=== PATIENT | female | born 1950 | race African-American/Black ===

== ENCOUNTER 2016-10-23 07:17 | Day surgery (SDC) | payer MEDICARE ==
[~2016-10-23] VITALS: Ht 168.9 cm; Wt 101.2 kg
--- NOTE | 2016-10-23 06:37 | HP ---
ADMIT DATE: 10/23/2016 HISTORY OF PRESENT ILLNESS: The patient originally came to me because of abdominal pain apparently. She apparently had a convoluted history, which showed her to have significant upper vertebral thoracic spine surgery for a very difficult and unusual problem. She has gotten over this and has been cleared for surgery. This was done many months ago. She has done well since then, but while she was in the hospital at that time, developed abdominal discomfort and was found to have gallstones. That was on CT and recently, a sonogram has also showed that. The laboratory data showed no other abnormalities. Since then, she has been relatively well, but does have these bouts of fatty food intolerance, gas, bloating and right upper quadrant pain and also has some right lower quadrant pain. She has normal bowel movements and no other ____ symptoms and is not nauseated or vomiting and has not lost weight. PAST MEDICAL HISTORY: Significant in that she had this spine surgery about 6-8 months ago and apparently was significant for a very long incision in the upper thoracic spine. She has had a hysterectomy and had a Pfannenstiel incision for that and has apparently had cervical spine surgery done to the neck. 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 She has been taking steroids up until about 6 weeks ago. ALLERGIES: SHE IS ALLERGIC TO TRAMADOL AND LEVAQUIN, BUT HAS NO OTHER ALLERGIES. MEDICATIONS: She does take medicine for hypertension and has been taking some thyroid medicine also. SOCIAL HISTORY: Shows that she drinks only socially, but does not smoke or use illicit drugs. Has no children. FAMILY HISTORY: Otherwise, negative except for mother who had a similar unusual thoracic spine surgery and apparently is paralyzed from that back disorder. REVIEW OF SYSTEMS: Negative except for that that has been stated. PHYSICAL EXAMINATION: GENERAL: Shows her to be alert, well-oriented female in no acute distress. HEENT: Grossly normal. CHEST: Clear bilaterally to auscultation. HEART: Had no murmurs, heaves, friction rubs or thrills and had a rate of about 65 beats per minute and it was regular. BREASTS: Not examined. PELVIC: Not done. ABDOMEN: Showed tenderness mostly in the right upper quadrant and epigastrium, but no guarding or rebound and she also had some tenderness in the right lower quadrant. There was likewise no guarding, rebound, no organomegaly or masses that were noted. She was not sweating and had only the Pfannenstiel incision that was noted. Otherwise, the examination was negative. DIAGNOSES: 1. Cholelithiasis. 2. Hypertension. 3. Probable hypothyroidism. 4. Cervical and thoracic spine disorders including surgery for the same. AJAY ERAZO MD DR: ARLEEN/nts JOB#: [id number] / [id number]
[~2016-10-23 07:17] MED LIST: ASPI-482 PO; CEFAZOLIN 2GM PREMIX 50 ML IV PRN; FENTANYL PF 100 MCG/2 ML VIAL. IV PRN; IBUP200T58 PO; IV RINGERS,LACTATED 1000ML 1,000 ML IV SCH; LEVO150T5 PO; LIDOCAINE 1% 1 ML SYRINGE. ID PRN; ONDANSETRON PF 4 MG/2 ML VIAL. IV PRN; PROCHLORPERAZINE 10 MG/2 ML VIAL. IV PRN; [UNRECOGNIZED DRUG - CODE]
[2016-10-23] MEDS ORDERED: IOHEXOL 300 MG/ML 50 ML VIAL. ONE (07:39)
[2016-10-23] MEDS ORDERED: BUPIVACAINE-EPI 0.25%-1:200000 50 ML VIAL. ONE (07:39)
[2016-10-23 08:38] LABS: BASO % 1 % (0-3); EOS % 2 % (0-3); HEMATOCRIT 37.3 % (36.0-47.0); LYMPH # 2.7 x10^3/uL (1.0-4.8); LYMPH % 40 % (24-48); MEAN CORPUSCULAR HEMOGLOBIN 26 pg (25-35); MEAN CORPUSCULAR HGB CONC 32 g/dL (31-37); MEAN CORPUSCULAR VOLUME 82 fL (79-100); MONO % 12 % (0-9); NEUT % 46 % (31-73); PLATELET COUNT 193 x10^3/uL (140-400); RED BLOOD COUNT 4.57 x10^6/uL (3.50-5.40); RED CELL DISTRIBUTION WIDTH 16.1 % (11.5-14.5); WHITE BLOOD COUNT 6.8 x10^3/uL (4.0-11.0)
[2016-10-23 08:52] LABS: CREATININE 0.9 mg/dL (0.6-1.0); GFR 75.8; POTASSIUM 3.9 mmol/L (3.5-5.1)
[2016-10-23] MEDS ORDERED: FENTANYL PF 100 MCG/2 ML VIAL. ONE ×2 (08:52→10:35)
[2016-10-23] MEDS ORDERED: GLYCOPYRROLATE 1 MG/5 ML VIAL. ONE (08:53)
[2016-10-23] MEDS ORDERED: ROCURONIUM 50 MG/5 ML VIAL. ONE ×2 (08:53→10:35)
[2016-10-23] MEDS ORDERED: DESFLURANE > 120 MINUTES IH ONE (08:53)
[2016-10-23] MEDS ORDERED: MIDAZOLAM HCL/PF 2 MG/2 ML VIAL. ONE (08:53)
[2016-10-23] MEDS ORDERED: PROPOFOL 20 ML IV ONE (08:53)
[2016-10-23] MEDS ORDERED: LIDOCAINE 2% 100 MG/5 ML SYRINGE. ONE (08:53)
[2016-10-23] MEDS ORDERED: ONDANSETRON PF 4 MG/2 ML VIAL. ONE (08:54)
[2016-10-23] MEDS ORDERED: DEXAMETHASONE SOD PHOS 20 MG/5 ML VIAL. ONE (08:54)
[2016-10-23 08:58] LABS: ALBUMIN 3.6 g/dL (3.4-5.0); ALBUMIN/GLOBULIN RATIO 0.9 (1.0-1.7); TOTAL BILIRUBIN 0.5 mg/dL (0.2-1.0); TOTAL PROTEIN 7.6 g/dL (6.4-8.2)
[2016-10-23] MEDS ORDERED: IV RINGERS,LACTATED 1000ML 1,000 ML IV SCH (09:00)
[2016-10-23] MEDS ORDERED: HYDROCORTISONE SOD SUCC/PF 100 MG/2 ML VIAL. ONE (09:00)
--- NOTE | 2016-10-23 09:13 | PDOC ---
SURGICAL PROGRESS NOTE Subjective No change in dictated H&P. Vital Signs Vital Signs Date Time Temp Pulse Resp B/P Pulse Ox O2 Delivery O2 Flow Rate FiO2 10/23/16 08:31 97.5 63 100 97.5 10/23/16 08:29 20 183/80 Room Air Labs Laboratory Tests Test 10/23/16 08:30 White Blood Count 6.8x10^3/uL (4.0-11.0) Red Blood Count 4.57x10^6/uL (3.50-5.40) Hemoglobin 12.0g/dL (12.0-15.5) Hematocrit 37.3% (36.0-47.0) Mean Corpuscular Volume 82fL (79-100) Mean Corpuscular Hemoglobin 26pg (25-35) Mean Corpuscular Hemoglobin Concent 32g/dL (31-37) Red Cell Distribution Width 16.1% (11.5-14.5) Platelet Count 193x10^3/uL (140-400) Neutrophils (%) (Auto) 46% (31-73) Lymphocytes (%) (Auto) 40% (24-48) Monocytes (%) (Auto) 12% (0-9) Eosinophils (%) (Auto) 2% (0-3) Basophils (%) (Auto) 1% (0-3) Neutrophils # (Auto) 3.1x10^3uL (1.8-7.7) Lymphocytes # (Auto) 2.7x10^3/uL (1.0-4.8) Monocytes # (Auto) 0.8x10^3/uL (0.0-1.1) Eosinophils # (Auto) 0.1x10^3/uL (0.0-0.7) Basophils # (Auto) 0.0x10^3/uL (0.0-0.2) Prothrombin Time 13.0SEC (11.7-14.0) Prothromb Time International Ratio 1.0 (0.8-1.1) Activated Partial Thromboplast Time 30SEC (24-38) Sodium Level 144mmol/L (136-145) Potassium Level 3.9mmol/L (3.5-5.1) Chloride Level 107mmol/L (98-107) Carbon Dioxide Level 31mmol/L (21-32) Anion Gap 6 (6-14) Blood Urea Nitrogen 13mg/dL (7-20) Creatinine 0.9mg/dL (0.6-1.0) Estimated GFR (Cockcroft-Gault) 75.8 BUN/Creatinine Ratio 14 (6-20) Glucose Level 103mg/dL (70-99) Calcium Level 9.0mg/dL (8.5-10.1) Total Bilirubin 0.5mg/dL (0.2-1.0) Aspartate Amino Transf (AST/SGOT) 38U/L (15-37) Alanine Aminotransferase (ALT/SGPT) 37U/L (14-59) Alkaline Phosphatase 109U/L (46-116) Total Protein 7.6g/dL (6.4-8.2) Albumin 3.6g/dL (3.4-5.0) Albumin/Globulin Ratio 0.9 (1.0-1.7) Thyroid Stimulating Hormone (TSH) 3.976uIU/mL (0.358-3.74) Free Triiodothyronine (T3) pg/mL 2.08pg/mL (2.18-3.98) Laboratory Tests Test 10/23/16 08:30 White Blood Count 6.8x10^3/uL (4.0-11.0) Red Blood Count 4.57x10^6/uL (3.50-5.40) Hemoglobin 12.0g/dL (12.0-15.5) Hematocrit 37.3% (36.0-47.0) Mean Corpuscular Volume 82fL (79-100) Mean Corpuscular Hemoglobin 26pg (25-35) Mean Corpuscular Hemoglobin Concent 32g/dL (31-37) Red Cell Distribution Width 16.1% (11.5-14.5) Platelet Count 193x10^3/uL (140-400) Neutrophils (%) (Auto) 46% (31-73) Lymphocytes (%) (Auto) 40% (24-48) Monocytes (%) (Auto) 12% (0-9) Eosinophils (%) (Auto) 2% (0-3) Basophils (%) (Auto) 1% (0-3) Neutrophils # (Auto) 3.1x10^3uL (1.8-7.7) Lymphocytes # (Auto) 2.7x10^3/uL (1.0-4.8) Monocytes # (Auto) 0.8x10^3/uL (0.0-1.1) Eosinophils # (Auto) 0.1x10^3/uL (0.0-0.7) Basophils # (Auto) 0.0x10^3/uL (0.0-0.2) Prothrombin Time 13.0SEC (11.7-14.0) Prothromb Time International Ratio 1.0 (0.8-1.1) Activated Partial Thromboplast Time 30SEC (24-38) Sodium Level 144mmol/L (136-145) Potassium Level 3.9mmol/L (3.5-5.1) Chloride Level 107mmol/L (98-107) Carbon Dioxide Level 31mmol/L (21-32) Anion Gap 6 (6-14) Blood Urea Nitrogen 13mg/dL (7-20) Creatinine 0.9mg/dL (0.6-1.0) Estimated GFR (Cockcroft-Gault) 75.8 BUN/Creatinine Ratio 14 (6-20) Glucose Level 103mg/dL (70-99) Calcium Level 9.0mg/dL (8.5-10.1) Total Bilirubin 0.5mg/dL (0.2-1.0) Aspartate Amino Transf (AST/SGOT) 38U/L (15-37) Alanine Aminotransferase (ALT/SGPT) 37U/L (14-59) Alkaline Phosphatase 109U/L (46-116) Total Protein 7.6g/dL (6.4-8.2) Albumin 3.6g/dL (3.4-5.0) Albumin/Globulin Ratio 0.9 (1.0-1.7) Thyroid Stimulating Hormone (TSH) 3.976uIU/mL (0.358-3.74) Free Triiodothyronine (T3) pg/mL 2.08pg/mL (2.18-3.98) AJAY ERAZO MD Oct 23, 2016 09:13
--- NOTE | 2016-10-23 09:17 | PDOC ---
SURGICAL PROGRESS NOTE Subjective Op NOte: Surgeon.................................................Chang Pre op diag............................................Chronic cholecystitic and cholelithiasis Post op diag..........................................same Anesthesia............................................general Procedure.............................................Lap antonieta with grams Drains..................................................none Fluids...................................................see anesthesia Blood loss............................................20cc Condition.............................................satisfactory. Vital Signs Vital Signs Date Time Temp Pulse Resp B/P Pulse Ox O2 Delivery O2 Flow Rate FiO2 10/23/16 08:31 97.5 63 100 97.5 10/23/16 08:29 20 183/80 Room Air Labs Laboratory Tests Test 10/23/16 08:30 White Blood Count 6.8x10^3/uL (4.0-11.0) Red Blood Count 4.57x10^6/uL (3.50-5.40) Hemoglobin 12.0g/dL (12.0-15.5) Hematocrit 37.3% (36.0-47.0) Mean Corpuscular Volume 82fL (79-100) Mean Corpuscular Hemoglobin 26pg (25-35) Mean Corpuscular Hemoglobin Concent 32g/dL (31-37) Red Cell Distribution Width 16.1% (11.5-14.5) Platelet Count 193x10^3/uL (140-400) Neutrophils (%) (Auto) 46% (31-73) Lymphocytes (%) (Auto) 40% (24-48) Monocytes (%) (Auto) 12% (0-9) Eosinophils (%) (Auto) 2% (0-3) Basophils (%) (Auto) 1% (0-3) Neutrophils # (Auto) 3.1x10^3uL (1.8-7.7) Lymphocytes # (Auto) 2.7x10^3/uL (1.0-4.8) Monocytes # (Auto) 0.8x10^3/uL (0.0-1.1) Eosinophils # (Auto) 0.1x10^3/uL (0.0-0.7) Basophils # (Auto) 0.0x10^3/uL (0.0-0.2) Prothrombin Time 13.0SEC (11.7-14.0) Prothromb Time International Ratio 1.0 (0.8-1.1) Activated Partial Thromboplast Time 30SEC (24-38) Sodium Level 144mmol/L (136-145) Potassium Level 3.9mmol/L (3.5-5.1) Chloride Level 107mmol/L (98-107) Carbon Dioxide Level 31mmol/L (21-32) Anion Gap 6 (6-14) Blood Urea Nitrogen 13mg/dL (7-20) Creatinine 0.9mg/dL (0.6-1.0) Estimated GFR (Cockcroft-Gault) 75.8 BUN/Creatinine Ratio 14 (6-20) Glucose Level 103mg/dL (70-99) Calcium Level 9.0mg/dL (8.5-10.1) Total Bilirubin 0.5mg/dL (0.2-1.0) Aspartate Amino Transf (AST/SGOT) 38U/L (15-37) Alanine Aminotransferase (ALT/SGPT) 37U/L (14-59) Alkaline Phosphatase 109U/L (46-116) Total Protein 7.6g/dL (6.4-8.2) Albumin 3.6g/dL (3.4-5.0) Albumin/Globulin Ratio 0.9 (1.0-1.7) Thyroid Stimulating Hormone (TSH) 3.976uIU/mL (0.358-3.74) Free Triiodothyronine (T3) pg/mL 2.08pg/mL (2.18-3.98) Laboratory Tests Test 10/23/16 08:30 White Blood Count 6.8x10^3/uL (4.0-11.0) Red Blood Count 4.57x10^6/uL (3.50-5.40) Hemoglobin 12.0g/dL (12.0-15.5) Hematocrit 37.3% (36.0-47.0) Mean Corpuscular Volume 82fL (79-100) Mean Corpuscular Hemoglobin 26pg (25-35) Mean Corpuscular Hemoglobin Concent 32g/dL (31-37) Red Cell Distribution Width 16.1% (11.5-14.5) Platelet Count 193x10^3/uL (140-400) Neutrophils (%) (Auto) 46% (31-73) Lymphocytes (%) (Auto) 40% (24-48) Monocytes (%) (Auto) 12% (0-9) Eosinophils (%) (Auto) 2% (0-3) Basophils (%) (Auto) 1% (0-3) Neutrophils # (Auto) 3.1x10^3uL (1.8-7.7) Lymphocytes # (Auto) 2.7x10^3/uL (1.0-4.8) Monocytes # (Auto) 0.8x10^3/uL (0.0-1.1) Eosinophils # (Auto) 0.1x10^3/uL (0.0-0.7) Basophils # (Auto) 0.0x10^3/uL (0.0-0.2) Prothrombin Time 13.0SEC (11.7-14.0) Prothromb Time International Ratio 1.0 (0.8-1.1) Activated Partial Thromboplast Time 30SEC (24-38) Sodium Level 144mmol/L (136-145) Potassium Level 3.9mmol/L (3.5-5.1) Chloride Level 107mmol/L (98-107) Carbon Dioxide Level 31mmol/L (21-32) Anion Gap 6 (6-14) Blood Urea Nitrogen 13mg/dL (7-20) Creatinine 0.9mg/dL (0.6-1.0) Estimated GFR (Cockcroft-Gault) 75.8 BUN/Creatinine Ratio 14 (6-20) Glucose Level 103mg/dL (70-99) Calcium Level 9.0mg/dL (8.5-10.1) Total Bilirubin 0.5mg/dL (0.2-1.0) Aspartate Amino Transf (AST/SGOT) 38U/L (15-37) Alanine Aminotransferase (ALT/SGPT) 37U/L (14-59) Alkaline Phosphatase 109U/L (46-116) Total Protein 7.6g/dL (6.4-8.2) Albumin 3.6g/dL (3.4-5.0) Albumin/Globulin Ratio 0.9 (1.0-1.7) Thyroid Stimulating Hormone (TSH) 3.976uIU/mL (0.358-3.74) Free Triiodothyronine (T3) pg/mL 2.08pg/mL (2.18-3.98) AJAY ERAZO MD Oct 23, 2016 09:17
--- NOTE | 2016-10-23 10:37 | RAD ---
Intraoperative cholangiogram 10/23/2016 Clinical history: Laparoscopic cholecystectomy. 5 digital spot radiographs of the right upper quadrant of the abdomen obtained during an intraoperative cholangiogram are submitted for interpretation. The total fluoroscopic time for the cholangiogram is listed as 0.11 minutes. These images demonstrate contrast opacifying the cystic duct remnant, the common hepatic duct, left and right hepatic ducts and their branches and the common bile duct. These ducts are normal in caliber. No filling defect is seen. Free spillage of contrast of the duodenum is noted. Impression: Negative study.
[2016-10-23] MEDS ORDERED: BUPIVACAINE-EPI 0.5%-1:200000 50 ML VIAL. ONE (11:21)
[2016-10-23] MEDS ORDERED: NEOSTIGMINE METHYLSULFATE 5 MG/5 ML SYRINGE. ONE (11:29)
[2016-10-23] MEDS ORDERED: CEFAZOLIN 1GM IVPB FOR OMNI 50 ML IV ONE (11:37)
[2016-10-23] MEDS ORDERED: IV 1/2 NORMAL SALINE 1,000 ML IV SCH (12:04)
[2016-10-23] MEDS ORDERED: 0.9 % SODIUM CHLORIDE 10 ML DISP.SYRIN. IV PRN (12:15)
[2016-10-23] MEDS ORDERED: ACETAMINOPHEN/CODEINE 300/30MG TABLET. PO PRN (12:15)
[2016-10-23] MEDS ORDERED: ONDANSETRON PF 4 MG/2 ML VIAL. IV PRN (12:15)
[2016-10-23] MEDS ORDERED: KETOROLAC TROMETHAMINE 30 MG/ML INJ. IV ONE (12:15)
[2016-10-23] MEDS ORDERED: KETOROLAC 15 MG/ML VIAL. IV PRN (12:15)
[2016-10-23] MEDS ORDERED: ACETAMINOPHEN/CODEINE 300/30MG TABLET. PO ONE (12:45)
[2016-10-23] MEDS ORDERED: SCOPOLAMINE 1.5MG PATCH. TD ONE (13:15)
[2016-10-23] MEDS ORDERED: ACET-704 PO (13:27)
[2016-10-23 13:58] VITALS: BP 178/78
[2016-10-23] MEDS ORDERED: FAMOTIDINE 20 MG/2 ML VIAL IVP SCH (14:00)
[2016-10-23] MEDS ORDERED: CEFAZOLIN SODIUM 1 GM in IV NORMAL SALINE 50ML 50 ML IV SCH (17:00)
--- NOTE | 2016-10-24 05:28 | OP ---
DATE OF SURGERY: SURGEON: Toni Erazo MD PREOPERATIVE DIAGNOSIS: Chronic cholecystitis and cholelithiasis. POSTOPERATIVE DIAGNOSIS: Chronic cholecystitis and cholelithiasis and intra-abdominal adhesions. ANESTHESIA: General. PROCEDURE: Laparoscopic cholecystectomy with intraoperative cholangiogram. TECHNIQUE: Under general anesthesia, the patient was properly prepped and draped in a routine fashion. She had had a hysterectomy, open and as such we were not sure about adhesions to the anterior abdominal wall. As such, we made a small incision in the right upper quadrant, about an inch or two below the costal margin, about a quarter of an inch in length with a 15 blade. We then pulled up on either side with towel clips and passed a Veress needle into the peritoneal cavity. Having done this, we then inspected the needle and let about 2-3 mL of saline go into the peritoneal cavity by gravity. We then insufflated the abdomen up to 15 with CO2 and then passed a 5 mm trocar there. We then passed a 5-mm camera and could barely see the tip of the gallbladder, but nothing else. Luckily, there were no adhesions to the anterior abdominal wall near the umbilicus and as such, we made a small infraumbilical incision with a 15 blade and then passed a 11-mm trocar there. We then removed the 5 mm camera and we placed a 10-mm camera into the infraumbilical port. We then placed a 5 mm trocar in the epigastrium just to the right of the falciform ligament using a nonbladed trocar. We then placed the bladed trocar lateral in the abdomen. We did all of these making certain not to injure any intraabdominal contents. We then placed the patient in reverse Trendelenburg, left side down, and luckily with a right lateral grasper placed through that port, we were able to grasp the tip of the gallbladder. There were many, many adhesions and as such, we used Harmonic scalpel and slowly pulled these away and divided them. They encompassed all but about an inch of the fundus of the gallbladder. We slowly these adhesions to get down toward the ampulla and the stomach was actually stuck over next to the gallbladder and this was pushed away and the adhesions divided. We did not damage the stomach entering or have any difficulties as far as compromising the stomach there. Now we could put the right upper quadrant grasper on the ampulla, the gallbladder pulled it laterally and cephalad and then slowly dissected ____ able to identify the cystic duct. We slowly went around it and there was some reaction around there. We went high and next to the gallbladder and in fact very high and clipped the gallbladder portion of the cystic duct and part of the gallbladder with 2 clips. We then made an incision next to the gallbladder and the gallbladder portion of the cystic duct. We then, through a needle, placed the trocar with a metal tip. We placed it in the cystic duct, clipped it in place. We aspirated and did not get bowel, but got a lot of air. We removed the clip, removed the catheter and saw that there was a hole in the catheter next to where the metal portion met the plastic portion. We then got another catheter and proceeded to insert it into the cystic duct in a similar fashion. We then aspirated back some bowel. We did get all the air out of the catheter and the syringe before we inserted it into the cystic duct. We clipped this in place and then got cholangiograms and the radiologist said the cholangiogram was normal. The dye did flow into the duodenum. There were no filling defects in the extrahepatic biliary system and you could see some of the radicles moving up into the liver. We then removed the clip and then clipped the cystic duct 3 times on the patient's side and divided it. We could see the common duct and certain that we did not damage or injure that. We then dissected out the remainder of the attachments to the gallbladder and there was a fairly large cystic artery. We saw it go directly to the gallbladder, not into the liver and then encircled and then clipped it once on the gallbladder side and 3 times on the patient's side and divided it. We then shelled the gallbladder out of the gallbladder fossa using the Harmonic scalpel and making certain not to cause any damage to the liver. Before we completely removed the gallbladder, we then inspected the fossa of the gallbladder and the hilum, there was no bleeding, no bile leaks and all was well. We then amputated the gallbladder from the liver tip. We then placed a 5-mm port in the epigastric port and the EndoCatch basket through the infraumbilical port and then put the gallbladder in the basket and released it and then fired the basket locking the gallbladder inside. We were able to actually remove the gallbladder totally without making an incision in the fascia. We then inspected the right lower quadrant. There were adhesions of small bowel over laterally almost covering the appendix and we never did see the appendix. She had had this previous pelvic surgery and just had a lot of adhesions and it would take quite a bit of time to take this down and we thought it was not an appropriate thing, to remove a normal appendix, if it was going to take the surgery a lot longer it would be more dangerous for her. Because of the adhesions and the scar tissue, we decided not to do this. We then turned our attention to the liver and aspirated the CO2. Lateral to the liver, inspected the hilum, all was well and we then aspirated all the CO2 out of the abdomen, especially above the liver. The trocars were all released. The fascia at the infraumbilical port was approximated with two #0 Prolene sutures and placed so that the incision was basically transverse. This having been done, we then irrigated the subcutaneous with saline and approximated the subcutaneous with 4-0 Vicryl and closed the skin in all of the cases using a subcuticular 5-0 Vicryl. All ports were sutured. We then placed Tegaderm dressings. The procedure was now terminated. The blood loss was probably 15-20 mL. Fluids given can be obtained from the anesthesia sheet. No drains were used. The condition of the patient was satisfactory as she is returned to the recovery room. TONI ERAZO MD DR: ARLEEN/jaz JOB#: [id number] / [id number]
--- NOTE | 2016-10-24 16:16 | PATHOLOGY ---
PATHOLOGY REPORT * * * * * * * * FINAL DIAGNOSIS: Gallbladder, laparoscopic cholecystectomy: - Cholelithiasis. - Chronic cholecystitis. COMMENT: There is no evidence of malignancy. (DALEM:; d/t: 10/24/16) REPORT ELECTRONICALLY SIGNED BY: Jose Scott M.D. DATE/TIME: 10/24/2016 16:15 * * * * * * * * GROSS PATHOLOGY: Received in formalin labeled "Bonnie Peterson, gallbladder and contents" is an 8.7 x 3.4 x 2.3 cm, intact gallbladder with reddish purple serosal surfaces. Opening the gallbladder reveals yellow, red velvety mucosa and an average wall thickness of 0.3 cm. Calculi are present and no masses are noted grossly. Calculi range from less than 0.1 up to 0.7 cm in maximum dimensions. Internal Audit Consultant sections from the body and fundus are submitted along with the proximal margin in cassette A1. (JPM; 10/23/16) INITIAL CPT CODE(S): A; 18664 Professional services [place] [address] Technical services performed by [facility] at [address] [place] [address]. SPECIMEN(S) RECEIVED: A.Gallbladder and contents CLINICAL HISTORY: gallstones PATIENT: BONNIE PETERSON Y /AGE: 1206/16/1950 (Age: 66) PATIENT #: [id number] ALT CASE #: SPECIMEN COLLECTION DATE: 10/23/2016 SPECIMEN RECEIVED DATE: 10/23/2016 [facility] - [address] [place] [place] [address] - PHONE: [phone] * * * END OF REPORT * * *
== END 2016-10-23 14:22 | disposition home or self-care (01) ==
LOC: SURG 07:17
PROVIDERS: ATTEND Specialist
DX: K80.10 Calculus of gallbladder with chronic cholecystitis without obstruction (principal); I10 Essential (primary) hypertension; M19.90 Unspecified osteoarthritis, unspecified site; E03.9 Hypothyroidism, unspecified; Z90.710 Acquired absence of both cervix and uterus; Z87.39 Personal history of other diseases of the musculoskeletal system and connective tissue; Z79.01 Long term (current) use of anticoagulants
CPT/HCPCS: 36415; 47563; 74300; 80053; 84443; 84481; 85027; 85610; 85730; C1782; J0690; J1100; J1720; J1885; J2250; J2405; J2704; J2710; J3010; J3490; J7030; J7120; Q9967; 88304

== ENCOUNTER → 2018-04-23 | Outpatient (CLI) | payer MEDICARE ==
[~2018-04-23] MED LIST changes: +ACET-704 PO; -CEFAZOLIN 2GM PREMIX 50 ML IV PRN; +CONTRAST GIVEN. MC PRN; -FENTANYL PF 100 MCG/2 ML VIAL. IV PRN; +IOHEXOL 240 MG/ML 50ML VIAL. ONE; +IOHEXOL 240 MG/ML 50ML VIAL. PO ONE; +IOHEXOL 300 MG/ML 100ML VIAL. IV ONE; +IOHEXOL 300 MG/ML 100ML VIAL. ONE; -IV RINGERS,LACTATED 1000ML 1,000 ML IV SCH; -LIDOCAINE 1% 1 ML SYRINGE. ID PRN; -ONDANSETRON PF 4 MG/2 ML VIAL. IV PRN; -PROCHLORPERAZINE 10 MG/2 ML VIAL. IV PRN
--- NOTE | 2018-04-23 16:01 | RAD ---
EXAM: CT Abdomen and Pelvis with IV contrast CLINICAL HISTORY: Abdominal adhesions COMPARISON: none available TECHNIQUE: Helical CT of the abdomen and pelvis was performed following the administration of intravenous contrast. Oral contrast was administered. Axial, coronal and sagittal reformatted images were generated. PQRS compliance statement - One or more of the following individualized dose reduction techniques were utilized for this study: 1. Automated exposure control 2. Adjustment of the mA and/or kV according to patient size 3. Use of iterative reconstruction technique FINDINGS: Lower chest: Minimal lingular scarring/atelectasis is seen. Abdomen and Pelvis: No focal liver lesion. No biliary ductal dilatation. Cholecystectomy clips are seen. Adrenal glands are normal. Spleen is unremarkable. Pancreas is normal. Symmetric nephrograms. No focal renal lesion. No hydronephrosis. No small or large bowel dilatation. Moderate colonic stool content is seen throughout the colon. No discrete adhesions are seen within the abdomen or pelvis although they are often occult by imaging. Appendix is normal. No abdominal or pelvic ascites. A few prominent retroperitoneal lymph nodes are seen, not enlarged by size criteria. Otherwise no abdominal pelvic lymphadenopathy. There has been a hysterectomy. Small fat-containing periumbilical hernia is seen. Bones: Changes of L5-S1 interbody fusion are seen with associated partial laminectomy. Degenerative changes of the spine are seen. IMPRESSION: 1. No small or large bowel dilatation to suggest bowel obstruction. Although no discrete adhesions are seen, they are often occult by imaging. 2. No abdominal or pelvic lymphadenopathy by size criteria. 3. There has been a cholecystectomy. 4. Small fat-containing periumbilical hernia is seen. Electronically signed by: Peewee Meyers MD (04/23/2018 3:58 PM) [id number]
--- NOTE | 2018-04-23 16:17 | RAD ---
MRI Cervical Spine Without Contrast History: Chronic neck and back pain, worsening arm radiculopathy and mid back pain, previous surgeries Technique: Multiplanar, multi sequential noncontrast MR imaging was performed of the cervical spine. Comparison: None Findings: There has been multilevel anterior cervical fusion with hardware throughout the cervical spine. There is fairly advanced narrowing of the C7-T1 intervertebral disc space which is the only nonfused level. Cervical cervical cord caliber is within normal limits without focal signal abnormality. There is no significant marrow edema. Cervical vertebral body stature is adequate. There is no significant abnormality cervical medullary junction. There is negligible anterior spondylolisthesis C6-7. C2-C3: There are posterior osteophytes with mild indentation upon the ventral thecal sac, central canal minimally narrowed to about 9 mm as measured on sagittal images, neural foramina overall adequate. C3-C4: Spinal canal is adequate. Neural foramina are not significantly narrowed C4-C5: There is some posterior osteophytes with mild indentation upon the ventral thecal sac without spinal stenosis. There is probable moderate to severe right and at least moderate left neural foramina compromise by osteophytes. C5-C6: There are posterior osteophytes which slightly indent the ventral thecal sac, central canal minimally narrowed to about 8 to 9 mm. Left neural foramen is likely adequate, probable at least moderate narrowing of the right neural foramen from osteophytes. C6-C7: There is some buckling of the ligamentum flavum. Spinal canal is overall adequate. Neural foramina are not significantly narrowed. C7-T1: There is minimal posterior disc osteophyte complex. Central canal is narrowed to about 8 to 9 mm. There are uncovertebral osteophytes, likely moderate to neural foramina compromise bilaterally. Impression: 1. There is multilevel anterior cervical fusion hardware throughout cervical spine other than sparing C7-T1. There is fairly advanced narrowing of the C7-T1 intervertebral disc space. There is mild spinal stenosis C2-3, C5-C6, C7-T1. There is suspected neural foramina compromise most notable right greater than left at C4-5, on the right at C5-C6, and bilaterally at C7-T1 due to osteophytes. Electronically signed by: Donovan Langley MD (04/23/2018 4:14 PM) [id number]
--- NOTE | 2018-04-23 16:22 | RAD ---
MRI Thoracic Spine without contrast History: Chronic neck and back pain, worsening arm radiculopathy and mid back pain, multiple fusion Technique: Multiplanar, multi sequential noncontrast MR imaging was performed of the thoracic spine. Contrast: None Comparison: None Findings: There is posterior fusion hardware with posterior screws at T2, T3, T4. Exam does not accurately evaluate integrity of hardware. Thoracic vertebral body stature and AP alignment are adequate. Thoracic cord caliber is within normal limits without convincing focal signal abnormality. There is no significant marrow edema. There is multilevel mild posterior epidural lipomatosis. There is no significant thoracic spinal stenosis. There is multilevel buckling of the ligamentum flavum, mild indentation upon the posterior thecal sac greatest at the T9-T10 level. There is no significant focal posterior disc abnormality of the thoracic spine. There is mild narrowing of the neural foramina by facets such as on the right at T10-11 and T11-12 and on the left at T10-11 and T9-T10. There is made of minimal posterior subluxation of L1 relative to L2. Impression: 1. There is posterior fusion hardware at T2-T4. There is no significant thoracic spinal stenosis. There is mild neural foramina compromise by facet degenerative change. Electronically signed by: Donovan Langley MD (04/23/2018 4:19 PM) [id number]
== END | disposition home or self-care (01) ==
LOC: CT 12:55
PROVIDERS: ATTEND Specialist
DX: K42.9 Umbilical hernia without obstruction or gangrene (principal); M85.88 Other specified disorders of bone density and structure, other site; M48.03 Spinal stenosis, cervicothoracic region
CPT/HCPCS: 72141; 72146; 74177; Q9966; Q9967